=== PATIENT | female | born 1950 | race Caucasian/White ===

== ENCOUNTER 2018-08-28 05:22 | Inpatient (IN) | payer MEDICARE, OTHER ==
[~2018-08-28] VITALS: Ht 160 cm; Wt 63.9 kg
[~2018-08-28 05:22] MED LIST: ASPI81EC PO; ATEN50 PO; B Complex #11 EACH PO; CALCIUM; CLOP75 PO; CYCL10 PO; Cyclobenzaprine5 MG PO; DULO60 PO; EZET10 PO; FURO20 PO; HYDACE7.5 PO; ISODIN20 PO; Isosorbide Mono60 MG PO; LISHYD2012 PO; LIVALO PO; LORA10ER PO; Lialda1.2 GM; Nitrostat0.4 MG SL; OMEP20ER PO; OXYACE5T PO; Percocet 5-3251 EACH PO; RANO500T PO; Tylenol325 MG PO; VITAMIN C; ZESTORETIC 20-121 EA PO; Zofran Odt4 MG SL
[2018-08-28 05:43] LABS: BASOPHILS ABSOLUTE AUTO 0.07 K/mm3 (0.00-0.23); BASOPHILS PERCENT AUTO 1 % (0-2); EOSINOPHILS PERCENT AUTO 4 % (0-6); Hematocrit 38.3 % (33.0-51.0); Hemoglobin 13.1 g/dL (11.5-16.0); IMMATURE GRAN ABSOLUTE AUTO 0.02 K/mm3 (0.00-0.10); IMMATURE GRAN PERCENT AUTO 0 % (0-1); LYMPHOCYTES PERCENT AUTO 30 % (21-46); MONOCYTES PERCENT AUTO 8 % (4-13); Mean Corpuscular HGB 28.5 pg (26.0-34.0); Mean Corpuscular HGB Conc 34.2 g/dL (31.5-36.5); Mean Corpuscular Volume 83 fL (80-100); Mean Platelet Volume 9.7 fL (9.1-12.4); NEUTROPHILS ABSOLUTE AUTO 4.95 K/mm3 (1.96-9.15); NEUTROPHILS PERCENT AUTO 57 % (41-73); Platelet Count 280 K/mm3 (150-400); RDW Coefficient Variation 13.2 % (11.7-14.2); White Blood Cell Count 8.64 K/mm3 (4.00-11.30)
[2018-08-28 06:11] LABS: Alanine Aminotransfer (ALT/SGP 19 U/L (12-78); Albumin, Blood 3.6 g/dL (3.4-5.0); Albumin/Globulin Ratio 1.1 (0.8-1.8); Alk Phos 101 U/L (50-136); Anion Gap 8 mmol/L (6-16); Aspartate Aminotrans (AST/SGOT 16 U/L (12-37); Bilirubin, Total 0.6 mg/dL (0.1-1.0); Blood Urea Nitrogen 7 mg/dL (8-24); Bun/Creatinine Ratio 12.1 (12.0-20.0); CO2, Blood 25 mmol/L (21-32); Calcium, Blood 8.8 mg/dL (8.5-10.1); Chloride, Blood 107 mmol/L (98-108); Creatinine, Blood 0.58 mg/dL (0.40-1.00); Globulin, Blood 3.4 g/dL (2.2-4.0); Glomerular Filtration Rate >60 (60-); Glucose, Blood 88 mg/dL (70-99); Potassium, Blood 3.7 mmol/L (3.5-5.5); Sodium, Blood 140 mmol/L (136-145); Troponin I <0.015 ng/mL (0.000-0.040)
[2018-08-28 10:20] LABS: Creatine Kinase MB 2.4 ng/mL (0.0-3.6); Creatine Kinase MB Index 1.2 (0.0-4.0); Troponin I 0.054 ng/mL (0.000-0.040)
--- NOTE | 2018-08-28 14:03 | NUR ---
ADMITTED TO ROOM 215 WITH SIGNIFICANT CARDIAC HX. REPORTED WOKE UP TWICE LAST NIGHT WITH CHEST PAIN. CHEST PAIN NOW RESOLVED.
[2018-08-28 15:14] LABS: Creatine Kinase MB Index 1.2 (0.0-4.0); Troponin I 0.052 ng/mL (0.000-0.040)
--- NOTE | 2018-08-28 18:47 | NUR ---
pt has been stable since this rn assumed care. sr on tele. no chest pain. pt indep in room. first part of stress test completed this am. pt yasmeen cardiac diet, to be npo after midnight. iv fluids at tko, rate change for when pt is npo. voiding well. nausea x1 this shift, medicated with zofran which was reported effective. troponin slightly elevated. pas to ble. pt calls appropriately prn.
[2018-08-29 05:12] LABS: BASOPHILS ABSOLUTE AUTO 0.04 K/mm3 (0.00-0.23); BASOPHILS PERCENT AUTO 1 % (0-2); EOSINOPHILS ABSOLUTE AUTO 0.02 K/mm3 (0.00-0.68); EOSINOPHILS PERCENT AUTO 0 % (0-6); Hematocrit 39.2 % (33.0-51.0); Hemoglobin 13.4 g/dL (11.5-16.0); IMMATURE GRAN ABSOLUTE AUTO 0.02 K/mm3 (0.00-0.10); IMMATURE GRAN PERCENT AUTO 0 % (0-1); LYMPHOCYTES ABSOLUTE AUTO 1.48 K/mm3 (0.84-5.20); LYMPHOCYTES PERCENT AUTO 18 % (21-46); MONOCYTES PERCENT AUTO 6 % (4-13); Mean Corpuscular HGB 28.6 pg (26.0-34.0); Mean Corpuscular HGB Conc 34.2 g/dL (31.5-36.5); Mean Corpuscular Volume 84 fL (80-100); Mean Platelet Volume 10.2 fL (9.1-12.4); NEUTROPHILS ABSOLUTE AUTO 6.22 K/mm3 (1.96-9.15); NEUTROPHILS PERCENT AUTO 75 % (41-73); Platelet Count 271 K/mm3 (150-400); RDW Coefficient Variation 13.1 % (11.7-14.2); RDW Standard Deviation 39.3 fL (35.1-46.3); Red Blood Cell Count 4.69 M/mm3 (3.80-5.20); White Blood Cell Count 8.28 K/mm3 (4.00-11.30)
[2018-08-29 05:40] LABS: Alanine Aminotransfer (ALT/SGP 22 U/L (12-78); Albumin, Blood 3.7 g/dL (3.4-5.0); Albumin/Globulin Ratio 1.1 (0.8-1.8); Alk Phos 103 U/L (50-136); Anion Gap 10 mmol/L (6-16); Aspartate Aminotrans (AST/SGOT 18 U/L (12-37); Bilirubin, Total 0.5 mg/dL (0.1-1.0); Blood Urea Nitrogen 8 mg/dL (8-24); Bun/Creatinine Ratio 17.5 (12.0-20.0); CO2, Blood 23 mmol/L (21-32); Calcium, Blood 8.9 mg/dL (8.5-10.1); Chloride, Blood 105 mmol/L (98-108); Cholesterol 210 mg/dL (50-200); Creatinine, Blood 0.46 mg/dL (0.40-1.00); Globulin, Blood 3.4 g/dL (2.2-4.0); Glomerular Filtration Rate >60 (60-); Glucose, Blood 107 mg/dL (70-99); Potassium, Blood 3.6 mmol/L (3.5-5.5); Sodium, Blood 138 mmol/L (136-145); Total Protein, Blood 7.1 g/dL (6.4-8.2); Triglycerides 115 mg/dL (30-160)
--- NOTE | 2018-08-29 07:00 | NUR ---
REPORT FROM ROSALIO HUDSON. ASSUMED PT CARE. PT RESTING IN POSITION OF COMFORT. WILL CONT TO MONITOR.
--- NOTE | 2018-08-29 07:37 | NUR ---
SHIFT SUMMARY: PT DENIED CHEST PAIN AND SOB THROUGHOUT NIGHT. C/O N/V. EMESIS X3. APPEARED TO BE BROWN-GREEN IN COLOR. GIVEN ZOFRAN TWICE. NEW ORDER OF REGLAN; SEEMS TO BE EFFECTIVE. BP ELEVATED; GIVEN 10MG OF HYDRALAZINE. PT ASYMPTOMATIC. INDEPENDENT IN RM.
--- NOTE | 2018-08-29 07:37 | NUR ---
ASSESSMENT CHARTED. PT MEDICATED PER EMAR. LIGHTS OFF FOR COMFORT.
--- NOTE | 2018-08-29 09:50 | NUR ---
PT RESTING IN POSITION OF COMFORT. NADN. STRESS TEST PLANNED FOR 1200.
--- NOTE | 2018-08-29 10:29 | NUR ---
DR AZEVEDO TO ROOM FOR EVAL.
--- NOTE | 2018-08-29 11:42 | NUR ---
PT RESTING IN POSITION OF COMFORT. EYES CLOSED. TV ON. DOOR CLOSED FOR PRIVACY. AWAITING STRESS TEST.
--- NOTE | 2018-08-29 12:01 | NUR ---
pt sitting on side of bed. new dressing placed on iv. awaiting stress test.
--- NOTE | 2018-08-29 12:20 | NUR ---
HEART CENTER STAFF TO ROOM FOR STRESS TEST.
--- NOTE | 2018-08-29 12:44 | NUR ---
PT PROVIDED WITH LUNCH.
--- NOTE | 2018-08-29 13:55 | NUR ---
PT TO IMAGING.
--- NOTE | 2018-08-29 14:10 | NUR ---
PT RETURNED FROM IMAGING. VSS. PT DENIES PAIN.
--- NOTE | 2018-08-29 14:31 | NUR ---
PT MEDICATED WITH PO MEDS THAT WERE HELD THIS AM. FOUNTAIN BEVERAGE PROVIDED. PT ALERT AND ORIENTED. WILL CONT TO MONITOR.
--- NOTE | 2018-08-29 15:00 | NUR ---
VS CHARTED. PT MEDICATED WITH APRESOLINE 10MG IV FOR HTN. PT GIOVANY WELL.
--- NOTE | 2018-08-29 16:05 | NUR ---
PT SITTING UP, DRINKING WATER AND SODA. NADN. VSS CHARTED. DENIES PAIN/NAUSEA.
--- NOTE | 2018-08-29 17:10 | NUR ---
SPOKE WITH DR AZEVEDO RE STRESS TEST RESULTS. PLAN TO HAVE CARDIOLOGY SEE PT AND OBSERVE OVERNIGHT. PT UPDATED. NADN. AWAITING DINNER TRAY.
--- NOTE | 2018-08-29 17:30 | NUR ---
PT SITTING ON SIDE OF BED. WATCHING TV. UP IN ROOM INDEPENDENTLY.
--- NOTE | 2018-08-29 18:40 | NUR ---
APPROPRIATE DINNER TRAY PROVIDED.
--- NOTE | 2018-08-29 18:58 | NUR ---
PT [place]NA IN [place].
--- NOTE | 2018-08-30 07:00 | NUR ---
REPORT FROM DEDE HUDSON. ASSUMED PT CARE.
--- NOTE | 2018-08-30 07:15 | NUR ---
ASSESSMENT CHARTED. PT DENIES PAIN, DENIES NAUSEA. PT STATES SHE HAD A GOOD NIGHT. PT SITTING UP IN CHAIR.
--- NOTE | 2018-08-30 07:55 | NUR ---
BREAKFAST PROVIDED. PT SITTING UP IN CHAIR WATCHING TV.
--- NOTE | 2018-08-30 08:15 | NUR ---
DR MARCIAL TO ROOM FOR CONSENT OF ANHIOGRAM. PT QUESTIONS ADDRESSED, NPO AFTER BREAKFAST. ORDERS TO HOLD LOVENOX.
--- NOTE | 2018-08-30 08:20 | NUR ---
PT MEDICATED PER EMAR. DENIES PAIN/DENIES NAUSEA.
--- NOTE | 2018-08-30 08:33 | NUR ---
DR AZEVEDO TO ROOM FOR EVAL.
--- NOTE | 2018-08-30 08:40 | NUR ---
LAB AT BEDSIDE.
--- NOTE | 2018-08-30 08:53 | NUR ---
PT MEDICATED PER EMAR. PLAN FOR NPO AFTER BREAKFAST FOR ANGIO THIS AFTERNOON. PT VERBALIZED UNDERSTANDING.
[2018-08-30 09:27] LABS: International Normalized Ratio 0.98; Prothrombin Time Results 10.4 Sec (9.7-11.5)
--- NOTE | 2018-08-30 09:50 | NUR ---
PT UP AMBULATING IN HALLS. DENIES NEEDS.
--- NOTE | 2018-08-30 11:15 | NUR ---
PT SITTING UP IN CHAIR. DC VALVE AND REGULATOR REPAIRER TO ROOM.
--- NOTE | 2018-08-30 13:50 | NUR ---
pt ambulating in halls.
--- NOTE | 2018-08-30 14:02 | NUR ---
PT RETURNED TO ROOM. STATES SHE WANTS TO TAKE A NAP. DOOR CLOSED FOR PRIVACY. DENIES PAIN, DENIES NAUSEA.
--- NOTE | 2018-08-30 15:35 | NUR ---
PT SITTING UP IN CHAIR. DENIES PAIN, DENIES NAUSEA. AWAITING HEART CENTER STAFF.
--- NOTE | 2018-08-30 16:50 | NUR ---
PT PROVIDED WITH COFFEE. PT UPDATED THAT ANGIO WILL BE TOMORROW MORNING PER DR MARCIAL. PT AGREEABLE. DENIES PAIN. PT SITTING UP IN CHAIR.
--- NOTE | 2018-08-30 17:28 | NUR ---
dinner tray provided. pt denies needs.
--- NOTE | 2018-08-30 18:45 | NUR ---
PT IN NO DISTRESS. SITTING UP IN CHAIR. NADN. DENIES NEEDS.
--- NOTE | 2018-08-31 03:15 | NUR ---
SPOKE TO ANGELICA IN PESTICIDE CHEMIST, STATED THAT PT WAS TO NOT BE FED BREAKFAST AND WOULD BE COMING TO THE PESTICIDE CHEMIST AROUND [id number] AND THAT SHE WAS SECOND IN LINE. NURSING INFOMRED HER THAT PT HAS BEEN NPO SINCE [place]. SAFETY MEASURES IN PLACE. WILL CONTINUE TO MONITOR.
[2018-08-31 05:19] LABS: BASOPHILS ABSOLUTE AUTO 0.08 K/mm3 (0.00-0.23); BASOPHILS PERCENT AUTO 1 % (0-2); EOSINOPHILS ABSOLUTE AUTO 0.18 K/mm3 (0.00-0.68); EOSINOPHILS PERCENT AUTO 2 % (0-6); Hematocrit 37.3 % (33.0-51.0); Hemoglobin 12.7 g/dL (11.5-16.0); IMMATURE GRAN ABSOLUTE AUTO 0.02 K/mm3 (0.00-0.10); IMMATURE GRAN PERCENT AUTO 0 % (0-1); LYMPHOCYTES ABSOLUTE AUTO 2.53 K/mm3 (0.84-5.20); LYMPHOCYTES PERCENT AUTO 31 % (21-46); MONOCYTES ABSOLUTE AUTO 0.83 K/mm3 (0.16-1.47); MONOCYTES PERCENT AUTO 10 % (4-13); Mean Corpuscular Volume 82 fL (80-100); Mean Platelet Volume 10.4 fL (9.1-12.4); NEUTROPHILS ABSOLUTE AUTO 4.49 K/mm3 (1.96-9.15); NEUTROPHILS PERCENT AUTO 55 % (41-73); Platelet Count 259 K/mm3 (150-400); RDW Coefficient Variation 13.1 % (11.7-14.2); RDW Standard Deviation 38.9 fL (35.1-46.3); Red Blood Cell Count 4.53 M/mm3 (3.80-5.20); White Blood Cell Count 8.13 K/mm3 (4.00-11.30)
[2018-08-31 05:39] LABS: Anion Gap 8 mmol/L (6-16); Blood Urea Nitrogen 9 mg/dL (8-24); Bun/Creatinine Ratio 18.1 (12.0-20.0); CO2, Blood 27 mmol/L (21-32); Chloride, Blood 106 mmol/L (98-108); Glomerular Filtration Rate >60 (60-); Glucose, Blood 89 mg/dL (70-99); Potassium, Blood 3.9 mmol/L (3.5-5.5); Sodium, Blood 141 mmol/L (136-145)
--- NOTE | 2018-08-31 06:50 | NUR ---
TOWELS, WASH CLOTHS, AND HIBICLENSE PROVIDED. PT TAKING SHOWER AT THIS TIME. NO C/O PAIN OR DISCOMFORT THIS SHIFT. INFORMED OF TIME FOR CATH. BU[place]NER FURTHER NEEDS AT THIS TIME. SAFETY MEASURES IN PLACE. WILL CONTINUE TO MONITOR.
--- NOTE | 2018-08-31 07:00 | NUR ---
REPORT FROM ARTHUR HUDSON. ASSUMED PT CARE. PT IN SHOWER AT THIS TIME. PLAN FOR HEART CENTER TO GET PT AT APPROX 0815.
--- NOTE | 2018-08-31 07:10 | NUR ---
[facility] [place] ASSISTING WITH PT CARE TODAY. VSS. ASSESSMENT CHARTED. PT DENIES PAIN. DENIES NAUSEA. PLAN FOR [facility] TO GET PT AROUND 0815. PT AGREEABLE.
--- NOTE | 2018-08-31 08:10 | NUR ---
PT TO HEART CENTER FOR ANGIO. PLAN FOR PT TO GO TO CARDIAC RECOVERY AREA THEN DC HOME. ALL PT BELONGINGS SENT WITH PT.
--- NOTE | 2018-08-31 08:31 | NUR ---
PAGE TO DR AZEVEDO TO UPDATE.
--- NOTE | 2018-08-31 12:21 | NUR ---
Pt with two cc of air removed from Tr-band. Pt comfortable.
--- NOTE | 2018-08-31 14:20 | NUR ---
PT RECEIVED FROM ROOM 215 VIA [facility]. VSS. ALERT AND ORIENTED X3. RIGHT WRIST SOFT, NO BLEED OR HEMATOMA, TR BAND CDI. ALL AIR REMOVED FROM TR BAND PER SIMON HUDSON IN [facility]. SNACK PROVIDED TO PT, CALL LIGHT IN REACH.
--- NOTE | 2018-08-31 14:44 | NUR ---
RIGHT WRIST SOFT, NO BLEED OR HEMATOMA, TR BAND CDI. TR BAND REMOVED. RIGHT WRIST SOFT, NO BLEED OR HEMATOMA, OPSITE APPLIED. ARM BOARD REAPPLIED. WILL CONTINUE TO MONITOR.
--- NOTE | 2018-08-31 16:38 | NUR ---
SHIFT SUMMARY 1400 PT RECEIVED FROM HEART CENTER. ALERT AND ORIENTED X3. RIGHT WRIST SOFT, NO BLEED OR HEMATOMA, TR BAND CDI. TR BAND REMOVED PER PROTOCOL. OPSITE TO RIGHT WRIST. RIGHT WRIST SOFT, NO BLEED OR HEMATOMA, OPSITE CDI, ARM BOARD IN PLACE. PT AWAITING TRANSFER TO ANOTHER HOSPITAL FOR CABG. PT AMBULATING INDEPENDENTLY IN ROOM. C/O 3/10 HEADACHE, MEDICATED WITH PRN PAIN MEDS. WILL CONTINUE TO MONITOR.
--- NOTE | 2018-09-01 04:41 | NUR ---
SHIFT SUMMARY: PATIENT TR BAND FULLY RECOVERED AT APPROX 1600 08/31/18. NO BLEEDING, HEMATOMA, SENSATION LOSS OR CIRCULATION ISSUES NOTED. PATIENT SLEPT WELL THIS SHIFT, VSS, NO ISSUES NOTED.
--- NOTE | 2018-09-01 11:44 | NUR ---
PATIENT PERMISSION PATIENT GAVE PERMISSION FOR ME TO CARE FOR HER TODAY 09/01/18
--- NOTE | 2018-09-01 11:44 | NUR ---
Assumed Care: Assumed care of pt at approx 0700. VSS. In no apparent sign of distress. Denies any pain or CP. Pt on RA. Denies any acute complaints or requests at this time. Spoke with Dr. Dunn this AM and plan is to add pt to [facility] transfer list for CABG in addition to [place] transfer list. See shift assessment for detailed assessment. Pt currently resting in bed with call light within reach. Denies any further questions, complaints or requests at this time. Will continue to monitor.
--- NOTE | 2018-09-01 19:52 | NUR ---
COBRA Transfer: Pt cobra transfer to [place] in [place] at approx 1620. VSS. In no apparent sign of distress. Pt has remained A&Ox4. Independent in the room. Calls appropriately. Denies any CP t/o the shift. No acute changes or events on tele. Pt has remained on RA. Report called to receiving RN. Pt transferred via ambulance. Denies any further questions, complaints or events at time of transfer. Dime size lump felt at R radial access site during shift assessment reduced to approx 1/2 size by time of transfer - no other s/sx of bleed/hamatoma noted t/o the shift.
== END 2018-09-01 16:20 | disposition short-term general hospital (02) | DRG 281 ==
LOC: ER 05:22 → ERHOLD 05:23 → SURS 05:23 → PCU 08-31 14:07
PROVIDERS: Emergency Medicine; Family Medicine; Internal Medicine Cardiovascular Disease; ADMIT Family Medicine
PROC: B2111ZZ Fluoroscopy of Multiple Coronary Arteries using Low Osmolar Contrast (ICD-10-PCS; principal; 2018-08-31)
PROC: 4A023N7 Measurement of Cardiac Sampling and Pressure, Left Heart, Percutaneous Approach (ICD-10-PCS; 2018-08-31)
DX: I21.4 Non-ST elevation (NSTEMI) myocardial infarction (principal); K51.90 Ulcerative colitis, unspecified, without complications; I25.10 Atherosclerotic heart disease of native coronary artery without angina pectoris; Z95.5 Presence of coronary angioplasty implant and graft; I25.2 Old myocardial infarction; I10 Essential (primary) hypertension; M19.90 Unspecified osteoarthritis, unspecified site; Z87.891 Personal history of nicotine dependence; I16.0 Hypertensive urgency; F41.9 Anxiety disorder, unspecified; F12.90 Cannabis use, unspecified, uncomplicated; E78.5 Hyperlipidemia, unspecified
CPT/HCPCS: 36415; 71046; 78452; 80048; 80053; 82465; 82550; 82553; 83690; 83880; 84443; 84478; 84484; 85025; 85379; 85610; 86850; 86900; 86901; 93005; 93010; 93017; 93306; 93458; 96374; 96375; 96376; 99152; 99153; 99285-25; A9500; C1769; C1894; G0378; J0280; J0360; J1644; J1650; J2250; J2405; J2765; J2785; J3010; J7030; Q9967

== ENCOUNTER 2023-08-06 07:24 | Day surgery (SDC) | payer MEDICARE, OTHER | END 2023-08-06 23:11 | disposition home or self-care (01) | LOC: CT 07:24 | DX: I25.118 Atherosclerotic heart disease of native coronary artery with other forms of angina pectoris (principal); I10 Essential (primary) hypertension; I25.2 Old myocardial infarction; E78.5 Hyperlipidemia, unspecified; Z95.1 Presence of aortocoronary bypass graft; Z88.8 Allergy status to other drugs, medicaments and biological substances; Z79.899 Other long term (current) drug therapy | CPT/HCPCS: 75574; Q9967 ==

== ENCOUNTER 2024-11-09 08:06 | Day surgery (SDC) | payer OTHER ==
[2024-11-09] VITALS (11 sets, daily range): BP systolic 125–172; BP diastolic 64–98
[~2024-11-09] VITALS: Ht 162.6 cm; Wt 72.6 kg
[~2024-11-09 08:06] MED LIST changes: +AMLO10 PO; +ASPI81CH PO; +Acerola C500 MG PO; +BUPR150ER PO; +Crestor40 MG PO; +HYDCHL12.5 PO; +LISI20 PO; +METO100ER PO; +OXYB5ER PO; +PRAM.125 PO
[2024-11-09] MEDS ORDERED: Heparin Sodium 1000 Units/ML 10ML MDV ONE ×2 (11:02→11:47)
[2024-11-09] MEDS ORDERED: NS 1,000 ML IV ONE ×2 (11:02→11:47)
[2024-11-09] MEDS ORDERED: NS 250 ML IV ONE (11:02)
[2024-11-09] MEDS ORDERED: Midazolam HCl 1MG / ML 2ML Vial ONE (11:47)
[2024-11-09] MEDS ORDERED: FentaNYL Citrate 50 MCG/ML 2 ML Injection ONE ×2 (11:47→12:35)
[2024-11-09] MEDS ORDERED: Nitroglycerin 2 MG/20 ML BTL ONE (12:30)
--- NOTE | 2024-11-09 13:26 | NUR ---
PT BACK TO RECOVERY FROM LAB. GROIN SITE SOFT AND NON-TENDER PER PT. NO BLEEDING/HEMATOMA NOTED. BILAT DP AND PT PULSES PRESENT.
[2024-11-09] MEDS ORDERED: Ondansetron HCl 2 MG / ML 2ML Vial ONE ×2 (13:33→14:22)
--- NOTE | 2024-11-09 13:41 | NUR ---
PT REPORTED NAUSEA. PT GIVEN ZOFRAN 4MG IV BY ANISHA HUDSON. PT NO REPORTS DECREASED NAUSEA.
--- NOTE | 2024-11-09 14:26 | NUR ---
PATIENT COMPLAINING OF NAUSEA AND VOMITING. 4 MG IV ZOFRAN GIVEN. HOB ELEVATED 30 DEGREES.
--- NOTE | 2024-11-09 14:51 | NUR ---
GROINS SITE SOFT AND NON-TENDER PER PT. NO BLEEDING/HEMATOMA NOTED. PT GIVEN CRACKERS.
--- NOTE | 2024-11-09 16:12 | NUR ---
PT GIVEN DC INSTRUCTIONS AND VERBALIZED UNDERSTANDING. IV OUT. PT CHNAGED. GROIN SITE SOFT AND NON-TENDER PER PT. NO BLEEDING/HEMATOMA NOTED. PT TAKEN TO LBY VIA WC. MOORE TO TAKE PT HOME.
== END 2024-11-09 16:19 | disposition home or self-care (01) ==
LOC: MHTC 08:06
DX: I73.9 Peripheral vascular disease, unspecified (principal); I25.10 Atherosclerotic heart disease of native coronary artery without angina pectoris; I25.2 Old myocardial infarction; I10 Essential (primary) hypertension; E78.5 Hyperlipidemia, unspecified; I48.91 Unspecified atrial fibrillation; Z87.891 Personal history of nicotine dependence; Z88.8 Allergy status to other drugs, medicaments and biological substances; Z79.899 Other long term (current) drug therapy; Z95.1 Presence of aortocoronary bypass graft
CPT/HCPCS: 37228; 75625; 75716; 75774; 76937; 99152; 99153; C1725; C1760; C1769; C1887; C1894; C9764; J1644; J2250; J2405; J3010; J7030; J7050; Q9967

== ENCOUNTER 2024-11-23 09:28 | Day surgery (SDC) | payer OTHER ==
[2024-11-23] VITALS (7 sets, daily range): BP systolic 125–171; BP diastolic 60–77
[~2024-11-23] VITALS: Ht 162.6 cm; Wt 72.6 kg
[2024-11-23 12:27] LABS: BASOPHILS ABSOLUTE AUTO 0.09 K/mm3 (0.00-0.23); BASOPHILS PERCENT AUTO 1 % (0-2); EOSINOPHILS ABSOLUTE AUTO 0.16 K/mm3 (0.00-0.68); EOSINOPHILS PERCENT AUTO 2 % (0-6); Hematocrit 37.6 % (33.0-51.0); IMMATURE GRAN ABSOLUTE AUTO 0.04 K/mm3 (0.00-0.10); IMMATURE GRAN PERCENT AUTO 0 % (0-1); LYMPHOCYTES PERCENT AUTO 22 % (21-46); MONOCYTES ABSOLUTE AUTO 0.72 K/mm3 (0.16-1.47); MONOCYTES PERCENT AUTO 7 % (4-13); Mean Corpuscular HGB 28.2 pg (26.0-34.0); Mean Corpuscular HGB Conc 34.6 g/dL (31.5-36.5); Mean Corpuscular Volume 82 fL (80-100); Mean Platelet Volume 9.4 fL (9.1-12.4); NEUTROPHILS ABSOLUTE AUTO 6.61 K/mm3 (1.96-9.15); NEUTROPHILS PERCENT AUTO 67 % (41-73); Platelet Count 267 K/mm3 (150-400); RDW Coefficient Variation 12.9 % (11.7-14.2); RDW Standard Deviation 38.2 fL (35.1-46.3); Red Blood Cell Count 4.61 M/mm3 (3.80-5.20); White Blood Cell Count 9.82 K/mm3 (4.00-11.30)
[2024-11-23 12:41] LABS: International Normalized Ratio 1.03; Prothrombin Time Results 11.3 Sec (9.7-11.5)
[2024-11-23 12:53] LABS: Bun/Creatinine Ratio 15.2 (12.0-20.0); Calcium, Blood 9.3 mg/dL (8.5-10.1); Creatinine, Blood 0.66 mg/dL (0.40-1.00); Potassium, Blood 3.8 mmol/L (3.5-5.5)
[2024-11-23] MEDS ORDERED: NS 250 ML IV ONE ×2 (13:24→15:03)
[2024-11-23] MEDS ORDERED: NS 2,000 ML IV ONE (13:24)
[2024-11-23] MEDS ORDERED: Heparin Sodium 1000 Units/ML 10ML MDV ONE (13:24)
[2024-11-23] MEDS ORDERED: Nitroglycerin 2 MG/20 ML BTL ONE (13:24)
[2024-11-23] MEDS ORDERED: FentaNYL Citrate 50 MCG/ML 2 ML Injection ONE ×3 (13:42→14:58)
[2024-11-23] MEDS ORDERED: Midazolam HCl 1MG / ML 2ML Vial ONE ×2 (13:42→13:43)
[2024-11-23] MEDS ORDERED: Ondansetron HCl 2 MG / ML 2ML Vial ONE (13:43)
[2024-11-23] MEDS ORDERED: NS 100 ML IV ONE (14:13)
--- NOTE | 2024-11-23 16:47 | NUR ---
PATIENT TO RECOVERY ROOM AT 1516 S/P LEFT PERIPHERAL WITH 3 STENTS PLACED; 2 TO SFA AND 1 TO LEFT EXTERNAL ILIAC. PATIENT AWAKE AND ALERT, DENIES COMPLAINTS, VSS. RIGHT GROIN SITE WITH ANGIOSEAL STABLE W/O HEMATOMA, BLEEDING, SWELLING, OR TENDERNESS. CIRC CHECK TO BLE WNL. DOPPLER TO BILAT PT, 1+ TO BILAT DP. GROIN AND PULSES CHECKED Q 15MIN. NEW RX FOR PLAVIX 75MG DAILY W 3 REFILLS FAXED TO [facility] PER PATIENTS REQUEST. FAX COMMUNICATION REPORT SHOWS FAX WAS SUCCESSFULLY SENT. PT HOB PLACED AT 15 DEGREES AT 1610, AND 30 DEGREES AT 1645, PT GIOVANY WELL, SITE UNCHANGED. PT GIOVANY FOOD AND FLUIDS.
[2024-11-23] MEDS ORDERED: CLOP75 PO (16:55)
--- NOTE | 2024-11-23 17:31 | NUR ---
VERBAL AND WRITTEN DISCHARGE INSTRUCTIONS GIVEN TO PATIENT AND PT'S FRIEND WITH CLEAR UNDERSTANDING. PT UP TO BATHROOM AND GIOVANY WELL. NO CHANGE TO RIGHT GROIN, PULSES UNCHANGED. VSS. PT DC'D HOME IN STABLE CONDITION AT 1735. PT ESCORTED OUT VIA WHEELCHAIR, CARE HANDED OVER TO FRIEND WHO IS DRIVING HER HOME. PT DENIES COMPLAINTS.
== END 2024-11-23 23:00 | disposition home or self-care (01) ==
LOC: MHTC 09:28
PROVIDERS: Radiology Diagnostic Radiology
DX: I70.223 Atherosclerosis of native arteries of extremities with rest pain, bilateral legs (principal); I70.1 Atherosclerosis of renal artery; E78.5 Hyperlipidemia, unspecified; I48.91 Unspecified atrial fibrillation; I25.10 Atherosclerotic heart disease of native coronary artery without angina pectoris; K21.9 Gastro-esophageal reflux disease without esophagitis; I10 Essential (primary) hypertension; I25.2 Old myocardial infarction; Z87.891 Personal history of nicotine dependence; Z79.82 Long term (current) use of aspirin; Z79.899 Other long term (current) drug therapy; Z88.8 Allergy status to other drugs, medicaments and biological substances; Z91.048 Other nonmedicinal substance allergy status; Z95.1 Presence of aortocoronary bypass graft; Z95.5 Presence of coronary angioplasty implant and graft
CPT/HCPCS: 37221; 37226; 37228; 37232; 75625; 75716; 75774; 76937; 80048; 85025; 85610; 99152; 99153; C1725; C1760; C1769; C1874; C1876; C1887; C1894; C2623; J1644; J2250; J2405; J3010; J7030; J7050; Q9967

== ENCOUNTER 2025-01-10 08:11 | Emergency (ER) | payer OTHER ==
[~2025-01-10] VITALS: Ht 162.6 cm; Wt 72.6 kg
[2025-01-10 08:22] VITALS: BP 161/73
[2025-01-10 09:21] LABS: BASOPHILS ABSOLUTE AUTO 0.07 K/mm3 (0.00-0.23); BASOPHILS PERCENT AUTO 1 % (0-2); EOSINOPHILS ABSOLUTE AUTO 0.19 K/mm3 (0.00-0.68); EOSINOPHILS PERCENT AUTO 2 % (0-6); Hematocrit 40.3 % (33.0-51.0); Hemoglobin 14.2 g/dL (11.5-16.0); IMMATURE GRAN ABSOLUTE AUTO 0.02 K/mm3 (0.00-0.10); IMMATURE GRAN PERCENT AUTO 0 % (0-1); LYMPHOCYTES ABSOLUTE AUTO 1.95 K/mm3 (0.84-5.20); LYMPHOCYTES PERCENT AUTO 22 % (21-46); MONOCYTES ABSOLUTE AUTO 0.72 K/mm3 (0.16-1.47); MONOCYTES PERCENT AUTO 8 % (4-13); Mean Corpuscular HGB Conc 35.2 g/dL (31.5-36.5); Mean Corpuscular Volume 80 fL (80-100); NEUTROPHILS ABSOLUTE AUTO 6.13 K/mm3 (1.96-9.15); NEUTROPHILS PERCENT AUTO 68 % (41-73); NRBC ABSOLUTE 0.00 K/mm3 (0.00-0.02); NRBC Auto 0.0 /100 WBC (0.0-0.2); Platelet Count 245 K/mm3 (150-400); RDW Coefficient Variation 13.2 % (11.7-14.2); RDW Standard Deviation 38.1 fL (35.1-46.3)
[2025-01-10 09:53] LABS: Alanine Aminotransfer (ALT/SGP 22.0 U/L (12-78); Albumin, Blood 3.6 g/dL (3.4-5.0); Albumin/Globulin Ratio 0.9 (0.8-1.8); Anion Gap 8.0 mmol/L (3-11); Aspartate Aminotrans (AST/SGOT 23.0 U/L (12-37); Bilirubin, Total 0.6 mg/dL (0.1-1.0); Blood Urea Nitrogen 12.0 mg/dL (8-24); CO2, Blood 24.0 mmol/L (21-32); Calcium, Blood 9.2 mg/dL (8.5-10.1); Chloride, Blood 106.0 mmol/L (98-108); Creatinine, Blood 0.72 mg/dL (0.40-1.00); Globulin, Blood 3.8 g/dL (2.2-4.0); Glucose, Blood 98.0 mg/dL (70-99); Magnesium, Blood 1.7 mg/dL (1.6-2.4); Potassium, Blood 3.8 mmol/L (3.5-5.5); Sodium, Blood 134.0 mmol/L (136-145); Total Protein, Blood 7.4 g/dL (6.4-8.2)
== END 2025-01-10 10:11 | disposition home or self-care (01) ==
LOC: ER 08:11
PROVIDERS: Student in an Organized Health Care Education/Training Program
DX: H53.122 Transient visual loss, left eye (principal); I65.29 Occlusion and stenosis of unspecified carotid artery; I25.10 Atherosclerotic heart disease of native coronary artery without angina pectoris; I25.2 Old myocardial infarction; I10 Essential (primary) hypertension; K21.9 Gastro-esophageal reflux disease without esophagitis; E78.5 Hyperlipidemia, unspecified; Z87.891 Personal history of nicotine dependence; Z88.8 Allergy status to other drugs, medicaments and biological substances; Z91.048 Other nonmedicinal substance allergy status; Z79.82 Long term (current) use of aspirin; Z79.899 Other long term (current) drug therapy
CPT/HCPCS: 80053; 83735; 85025; 99284